=== PATIENT | female | born 1975 | race Caucasian/White ===

== ENCOUNTER 2021-02-25 16:33 | Emergency (ER) | payer OTHER ==
[~2021-02-25 16:33] MED LIST: ALL DAY ALL1 MG/1 ML PO; AMOX TR-K CLV1 EAC4 PO; ARMOUR THYROID15 MG PO; ATARAX10 MG/5 ML PO; BREO ELLIPTA 11 EACH INH; COD LIVER OIL1 EAC1 PO; FERROUS SU300 MG/5 M PO; FLEXERIL5 MG PO; GABAPENTIN100 MG PO; LEXAPRO 10MG TA10 MG PO; MAG-OXIDE 400M400 MG PO; MEDROL 4MG DOSEP4 MG PO; METRONIDAZOLE500 MG PO; PROGESTERONE CR PO; PROTONIX 40MG T40 MG PO; SENNA8.6 MG PO; VOLTAREN **OUT50 MG PO; XANAX0.25 MG PO; ZOLOFT50 MG PO
[2021-02-25 18:36] LABS: BILIRUBIN NEGATIVE (NEGATIVE); BLOOD NEGATIVE Ery/uL (NEGATIVE); CLARITY CLEAR (CLEAR); COLOR YELLOW (YELLOW); GLUCOSE (U) NORMAL (NORMAL); LEUKOCYTES NEGATIVE Leu/uL (NEGATIVE); NITRITE NEGATIVE (NEGATIVE); PROTEIN NEGATIVE (NEGATIVE); SPECIFIC GRAVITY 1.015 (1.001-1.030); UROBILINOGEN 0.2 mg/dL (0.2-1.0)
[2021-02-25 18:37] LABS: BASOPHIL 0.7 % (0-2); EOSINOPHIL 1.3 % (0-5); HCT 38.8 % (37.0-47.0); HGB 12.9 g/dl (12.5-16.0); LYMPHOCYTE 22.9 % (15-48); MCH 30.1 pg (25.0-31.0); MCHC 33.2 g/dL (32.0-36.0); MCV 90.7 fL (78.0-100.0); MONOCYTE 7.2 % (0-12); MPV 9.5 fL (6.0-9.5); NEUTROPHIL 67.4 % (41-80); NRBC 0; PLT 273 K/uL (150-400); RBC 4.28 M/uL (4.20-5.40); RDW 13.1 % (11.5-14.0)
[2021-02-25 18:56] LABS: ALBUMIN 3.8 g/dL (3.4-5.0); BILIRUBIN - TOTAL 0.3 mg/dL (0.2-1.0); BUN/CREAT RATIO (CALC) 21.9 RATIO; CREATININE 0.73 mg/dL (0.51-0.95); GLOBULIN (CALCULATION) 3.9 g/dL; POTASSIUM 4.1 mmol/L (3.5-5.1); TOTAL PROTEIN 7.7 g/dL (6.4-8.2)
[2021-04-22] MEDS ORDERED: NORCO 5/3251 EACH PO (15:19)
[2021-04-22] MEDS ORDERED: MELOXICAM15 MG PO (15:20)
[2021-06-15] MEDS ORDERED: NORCO 5/3251 EACH PO (18:08)
== END 2021-02-25 20:15 | disposition home or self-care (01) ==
LOC: FER 16:33
PROVIDERS: Nurse Practitioner
DX: F45.0 Somatization disorder (principal); M79.605 Pain in left leg; Z20.822 Contact with and (suspected) exposure to COVID-19; Z87.19 Personal history of other diseases of the digestive system; Z87.09 Personal history of other diseases of the respiratory system; Z98.890 Other specified postprocedural states; Z88.5 Allergy status to narcotic agent; Z87.891 Personal history of nicotine dependence
CPT/HCPCS: 36415; 80053; 81003; 85025; 99284; J1885; U0002

== ENCOUNTER 2021-07-27 11:23 | Emergency (ER) | payer OTHER ==
[~2021-07-27 11:23] MED LIST changes: +MELOXICAM15 MG PO; +NORCO 5/3251 EACH PO
[2021-07-27] MEDS ORDERED: AUGMENTIN 875-1 EACH PO (11:59)
== END 2021-07-27 13:34 | disposition home or self-care (01) ==
LOC: FER 11:23
DX: L03.114 Cellulitis of left upper limb (principal)
CPT/HCPCS: 93005

== ENCOUNTER 2021-11-24 13:26 | Emergency (ER) | payer OTHER ==
[~2021-11-24 13:26] MED LIST changes: +AUGMENTIN 875-1 EACH PO; +NARCAN4 MG
[2021-11-24 14:21] LABS: BILIRUBIN NEGATIVE (NEGATIVE); BLOOD 1+ Ery/uL (NEGATIVE); CLARITY HAZY (CLEAR); COLOR YELLOW (YELLOW); GLUCOSE (U) NORMAL (NORMAL); LEUKOCYTES TRACE Leu/uL (NEGATIVE); NITRITE NEGATIVE (NEGATIVE); PROTEIN NEGATIVE (NEGATIVE); SPECIFIC GRAVITY 1.015 (1.001-1.030); UROBILINOGEN 0.2 mg/dL (0.2-1.0)
[2021-11-24 14:23] LABS: AMPHETAMINES NEGATIVE (NEGATIVE); BARBITURATES NEGATIVE (NEGATIVE); ECSTASY (MDMA) NEGATIVE (NEGATIVE); MARIJUANA (THC) NEGATIVE (NEGATIVE); METHADONE NEGATIVE (NEGATIVE); OXYCODONE NEGATIVE (NEGATIVE)
[2021-11-24 14:24] LABS: OPIATES POSITIVE (NEGATIVE)
[2021-11-24 14:31] LABS: BASOPHIL 0.6 % (0-2); EOSINOPHIL 2.1 % (0-5); HCT 40.8 % (37.0-47.0); HGB 13.5 g/dl (12.5-16.0); LYMPHOCYTE 16.3 % (15-48); MCH 29.3 pg (25.0-31.0); MCHC 33.1 g/dL (32.0-36.0); MCV 88.7 fL (78.0-100.0); MONOCYTE 7.3 % (0-12); NEUTROPHIL 73.6 % (41-80); NRBC 0; PLT 244 K/uL (150-400); WBC 8.7 K/uL (4.0-10.5)
[2021-11-24 14:38] LABS: URINARY WBC RARE
[2021-11-24 14:56] LABS: ALBUMIN 3.6 g/dL (3.4-5.0); ALKALINE PHOSHATASE 68 U/L (46-116); ALT 24 U/L (14-59); AST 13 U/L (15-37); BILIRUBIN - TOTAL 0.6 mg/dL (0.2-1.0); BUN 11 mg/dL (7-18); BUN/CREAT RATIO (CALC) 17.2 RATIO; CHLORIDE 103 mmol/L (98-107); CO2 (BICARBONATE) 28 mmol/L (21-32); CREATININE 0.64 mg/dL (0.51-0.95); GLOBULIN (CALCULATION) 4.3 g/dL; GLUCOSE 119 mg/dL (74-106); POTASSIUM 4.1 mmol/L (3.5-5.1); TOTAL PROTEIN 7.9 g/dL (6.4-8.2)
[2021-11-24 14:57] LABS: ACETAMINOPHEN (TYLENOL) < 2.0 ug/mL (10.0-30.0)
[2021-11-24 15:19] LABS: INFLUENZA A NAA NEGATIVE (NEGATIVE)
[2021-11-24 15:22] LABS: CORONAVIRUS 2019 SARS-COV-2 POSITIVE (NEGATIVE)
== END 2021-11-24 19:01 | disposition other institution (70) ==
LOC: FER 13:26
PROVIDERS: Emergency Medicine
DX: F23 Brief psychotic disorder (principal); R45.851 Suicidal ideations; U07.1 COVID-19; Z88.2 Allergy status to sulfonamides; Z91.013 Allergy to seafood
CPT/HCPCS: 36415; 70450; 80053; 80305; 81001; 85025; 96372; G0480; J2060; U0002